=== PATIENT | male | born 1965 | race African-American/Black ===

== ENCOUNTER → 2017-03-01 | Outpatient (CLI) | payer BC ==
--- NOTE | 2017-03-03 13:28 | DRAGON STRESS TEST REPORT ---
Exercise EKG treadmill Cardiolite stress test using SPECT. Data procedure: 03/01/2017. Ordering Provider: Dr. Perkins. Indication: Atherosclerotic heart disease. Coronary risk factors: Age , hypertension, and hyper lipidemia. Significant physical findings prior to stress testing show a blood pressure of 137/75, and a heart rate of 64 beats per minute. Auscultation of the heart shows normal S1 and S2.No S3 or S4 gallops. Systolic murmur in the left sternal border and apex. Lungs are clear to auscultation and percussion. Resting 12-lead EKG: Sinus rhythm. Inferior wall T inversion and also T inversion in leads V5 to V6 rate Procedure: The patient was excised on a standard Garth protocol. . The patient walked a total of 7 minutes and 4 seconds on this protocol and reached a peak heart rate of 155 beats per minute, which is 91 % of maximum predicted heart rate for age. This is at a workload of 10.10 METS. The test was stopped because of 91% of management predicted heart rate for age achievement The patient described no symptoms of chest pain/discomfor, or shortness of breath. Exercise EKG's show: There is no EKG evidence of exercise-induced myocardial ischemia. Arrhythmias seen:None The blood pressure response was .normal . At peak exercise the blood pressure was 177/67 millimeters of Hg. The double product was 26.0 K. Summary of findings and interpretation: 1. No chest pain or chest discomfort symptoms reproduced. 2. No EKG evidence of ischemia in the form of ST segment depression. 3. Normal blood pressure response. 4. No arrhythmias seen. 5. Good exercise tolerance, good aerobic capacity. Diagnostic treadmill stress test negative for ischemia by EKG criteria. Recommendations: Correlate with nuclear Cardiolite images. Nuclear data: At rest the patient was given 15.06 millicuries of technetium 99 sestamibi, and as per protocol rest none gated SPECT images were obtained. The patient was exercised on a treadmill [see exercise physiology]. One minute prior to termination of exercise, 44.5 millicuries of technetium and there sestamibi was injected intravenously. As per protocol stress gated images were obtained. Impression: Review of images show that all segments of the myocardium had normal perfusion at rest, and normal perfusion post exercise. All segments of the myocardium had normal motion, contraction, and thickening by gated study. Jerry I D. ratio was[normal at 1.09. The computer read rest and stress left ventricular ejection fractions were 60 % and 59 %respectively. Conclusions: 1. No clinical symptoms of exercise-induced myocardial ischemia at a peak heart rate of 155 beats per minute, patient having achieved 91 % of maximum predicted heart rate for age, at a workload of 10.10 METS. 2. No EKG evidence of exercise-induced myocardial ischemia. 3. No arrhythmias seen. 4. No scintigraphic evidence of exercise-induced myocardial ischemia. 5. No scintigraphic evidence of myocardial infarction/scar. Recommendations Aggressive coronary risk factor modification, and treatment of underlying comorbidities. MTDD
== END ==
LOC: RAD 07:35
PROVIDERS: ATTEND Internal Medicine
DX: I25.10 Atherosclerotic heart disease of native coronary artery without angina pectoris (principal)
CPT/HCPCS: 93017; 78452; A9500; Q9969

== ENCOUNTER 2020-06-26 17:20 | Emergency (ER) | payer BC, OTHER ==
--- NOTE | 2020-06-26 19:06 | RADIOLOGY REPORT (SQ) ---
EXAM DESCRIPTION: FOOT RIGHT COMPLETE IMAGES COMPLETED DATE/TIME: 06/26/2020 6:50 pm REASON FOR STUDY: foot pain COMPARISON: None. EXAM PARAMETERS: NUMBER OF VIEWS: Three views. TECHNIQUE: AP, lateral and oblique radiographic images acquired of the right foot. LIMITATIONS: None. FINDINGS: MINERALIZATION: Normal. BONES: No acute fracture or dislocation. No worrisome bone lesions. JOINTS: No effusion. SOFT TISSUES: No significant soft tissue swelling. No radiopaque foreign body. OTHER: No other significant finding. IMPRESSION: NO FRACTURE. TECHNICAL DOCUMENTATION: JOB ID: [id number] [place]-[id number] 2010 [employer]- All Rights Reserved Reading location - IP/workstation name: [email or web address]
--- NOTE | 2020-06-26 19:24 | ER Document Report ---
ED Extremity Problem, Lower - General Chief Complaint: Foot Pain Stated Complaint: RIGHT FOOT PAIN/UNABLE TO STAND ON IT Primary Care Provider: CARL ALLISON MD [Primary Care Provider] - Follow up as needed Notes: 54-year-old male presenting today with past medical history of PA, COPD, asthma resenting today with right foot pain when he walks. He states that he has no pain when he is not walking he can bend flex move his foot around and has 0 pain. But once he goes to take a step on it he begins to have pain. He does not state that the pain gets any better with walking. He states that he had COVID 22 days ago. Had a repeat COVID testing today for evaluation for negative test result. He continues to report that he has had a loss of smell and loss of taste. He states that he is also has had calf pain. There is no swelling of his ankle foot or calf. Walks he notices his calf hurts as well. Symptoms started a week ago, have increased in intensity today when he walks. Denies any additional symptoms at this time. TRAVEL OUTSIDE OF THE [place] IN LAST 30 DAYS: No - Related Data Allergies/Adverse Reactions: No Known Allergies Allergy (Verified 06/26/20 18:32) Past Medical History - Social History Smoking Status: Former Smoker Frequency of alcohol use: None Drug Abuse: None Family History: Reviewed & Not Pertinent Patient has homicidal ideation: No - Past Medical History Cardiac Medical History: Reports: Hx Heart Attack, Hx Hypercholesterolemia, Hx Hypertension Pulmonary Medical History: Reports: Hx Asthma Neurological Medical History: Reports: Hx Migraine Past Surgical History: Reports: Hx Cardiac Surgery - stent - Immunizations Hx Diphtheria, Pertussis, Tetanus Vaccination: Yes Review of Systems - Review of Systems Constitutional: No symptoms reported EENT: No symptoms reported Cardiovascular: No symptoms reported Respiratory: No symptoms reported Gastrointestinal: No symptoms reported Genitourinary: No symptoms reported Male Genitourinary: No symptoms reported Musculoskeletal: See HPI Skin: No symptoms reported Hematologic/Lymphatic: No symptoms reported Neurological/Psychological: No symptoms reported Physical Exam - Vital signs Vitals: Temp Pulse Resp BP Pulse Ox 97.6 F 105 H 18 118/79 99 06/26/20 17:27 06/26/20 17:27 06/26/20 17:27 06/26/20 17:27 06/26/20 17:27 Interpretation: Tachycardic. No: Hypertensive, Tachypneic, Febrile - Notes Notes: Adult General: GENERAL: Alert, interacts well. No acute distress HEAD: Normocephalic, atraumatic EYES: Extraocular movements intact. ENT: Airway patent. Nares patent NECK: Full range of motion. Supple. Trachea midline. No lymphadenopathy. LUNGS: Clear to auscultation bilaterally, no wheezes, rales, or rhonchi. No respiratory distress. Nontender chest wall. HEART: Regular rate and rhythm. No murmurs, rubs or gallops. ABDOMEN: Nondistended. GENITOURINARY: Deferred EXTREMITIES: No pain with flexion, extension, inversion, eversion. No swelling of ankle. Foot and ankle is non tender to palpation. No calf swelling but does have calf tenderness. (+) alexa sign. Good capillary refill and good sensation to light touch on bilateral lower extremity. No ecchymosis no bruising. Moves all 4 extremities spontaneously. No edema, dorsal pedis pulses bilaterally. No cyanosis. BACK: Moves all extremities with full range of motion. NEUROLOGICAL: Alert and oriented x3. Normal speech. Strength 5/ 5 in all extremities. PSYCH: Normal affect, normal mood. SKIN: Warm, dry, normal turgor. No rashes or lesions noted. Course - Re-evaluation Re-evalutation: 06/26/20 22:27 Doppler study was ordered at 6:19. Around 8:00 Doppler study had not been performed. I called Doppler and I received no answer. I talked with the charge nurse who is able to have the on-call Doppler tech paged to have them come in to perform the study. Was notified by the tech that the patient does have a positive DVT to popliteal vein and also notes a decreased blood flow starting in the femoral. I am pending the official read. And then I will consult heme-onc. Patient was notified of this plan. Venous doppler shows thrombus of the popliteal vein and posterior tibial veins. I called Dr. Rucker who is on-call for hematology who recommends starting patient on anticoagulation. Is agreeable that patient can be started on Eliquis if creatinine and GFR are within normal limits. I have ordered the labs. Are pending results. Creatinine is 0.85 and GFR is greater than 60 I will go ahead and order the patient Eliquis. Additional labs are unremarkable. I instructed the patient to take 10 mg of Eliquis twice daily for 7 days and then 5 mg twice daily for a minimum of 3 months. I discussed with him that I have prescribed him enough medication for 1 month and that he needs to follow-up with his primary care provider on Sunday. I also discussed return precautions to include shortness of breath, cough, leg swelling or additional symptoms. I also have ordered patient crutches to help him ambulate. Patient acknowledges and verbalizes understanding of instructions and plan. All questions answered. - Vital Signs Vital signs: Temp Pulse Resp BP Pulse Ox 98.0 F 82 16 120/82 100 06/27/20 00:52 06/27/20 00:52 06/27/20 00:52 06/27/20 00:52 06/27/20 00:52 - Laboratory Result Diagrams: 06/26/20 23:30 06/26/20 23:30 Laboratory results interpreted by me: 06/26/20 06/26/20 23:30 23:30 Hgb 13.4 L MCV 79 L MCH 26.7 L Glucose 116 H Discharge - Discharge Clinical Impression: DVT (deep venous thrombosis) Qualifiers: DVT location: lower extremity Affected thrombotic vein of extremity: popliteal Chronicity: acute Laterality: right Qualified Code(s): I82.431 - Acute embolism and thrombosis of right popliteal vein Condition: Stable Disposition: HOME, SELF-CARE Instructions: DVT Outpatient Treatment ([facility]) Additional Instructions: Venous doppler shows you have a DVT on your right lower extremity. You have been given a medication to take for this, eliquis. Please take 10 mg by mouth twice a day for 7 days and then decrease the dose to 5 mg by mouth twice a day for a minimum of 3 months. I have prescribed you enough medication for 1 month. Please follow-up with your primary care on Sunday. Please take medication as prescribed. Please return to the emergency department for worsening symptoms or development of new symptoms to include cough and shortness of breath. Prescriptions: Apixaban [Eliquis 5 mg Tablet] 5 mg PO BID #35 tablet Referrals: CARL ALLISON MD [Primary Care Provider] - Follow up as needed
--- NOTE | 2020-06-26 22:38 | RADIOLOGY REPORT (SQ) ---
EXAM DESCRIPTION: US EXTREMITY VEINS UNILATERAL COMPLETED DATE/TME: 06/26/2020 18:19 CLINICAL HISTORY: 54 years, Male, right calf pain COMPARISON: None. TECHNIQUE: Transverse longitudinal sonographic images of the right lower extremity deep venous system LIMITATIONS: None. FINDINGS: Visible areas of thrombus associated with the popliteal vein, and posterior tibial veins. Lack of normal compression and augmentation in these regions. Doppler and spectral analysis with color flow shows diminished flow in these regions. No other areas of DVT IMPRESSION: Findings positive for right lower extremity DVT, as above copyright 2010 [employer]- All Rights Reserved
[2020-06-26 23:51] LABS: HEMATOCRIT 39.6 % (37.9-51.0); HEMOGLOBIN 13.4 g/dL (13.5-17.0); MEAN CORPUSCULAR HEMOGLOBIN 26.7 pg (27.0-33.4); MEAN CORPUSCULAR VOLUME 79 fl (80-97); PLATELET COUNT 420 10^3/uL (150-450); RED BLOOD COUNT 5.03 10^6/uL (4.35-5.55); RED CELL DISTRIBUTION WIDTH 13.9 % (11.5-14.0)
[2020-06-27 00:03] LABS: INTERNATIONAL RATION (INR) 1.11; PROTHROMBIN TIME 14.5 SEC (11.4-15.4)
[2020-06-27 00:04] LABS: PARTIAL THROMBOPLASTIN TIME 33.1 SEC (23.5-35.8)
[2020-06-27 00:10] LABS: ALBUMIN 3.6 g/dL (3.5-5.0); ALKALINE PHOSPHATASE 51 U/L (38-126); ANION GAP 10 (5-19); ASPARTATE AMINO TRANSFERASE 28 U/L (17-59); BILIRUBIN,DIRECT 0.1 mg/dL (0.0-0.4); BILIRUBIN,TOTAL 0.5 mg/dL (0.2-1.3); BLOOD UREA NITROGEN 13 mg/dL (7-20); CALCIUM 9.1 mg/dL (8.4-10.2); CARBON DIOXIDE 27 mmol/L (22-30); CHLORIDE 103 mmol/L (98-107); GLUCOSE 116 mg/dL (75-110); POTASSIUM 4.3 mmol/L (3.6-5.0); TOTAL PROTEIN 7.4 g/dL (6.3-8.2)
[2020-06-27] MEDS ORDERED: APIXABAN 5 MG TABLET PO ONE (00:25)
[2020-06-27 00:53] VITALS: BP 120/82
== END 2020-06-27 00:57 | disposition home or self-care (01) ==
LOC: ER 17:20
DX: I82.431 Acute embolism and thrombosis of right popliteal vein (principal); M79.671 Pain in right foot; M79.604 Pain in right leg; R43.8 Other disturbances of smell and taste; I25.2 Old myocardial infarction; J44.9 Chronic obstructive pulmonary disease, unspecified; Z87.891 Personal history of nicotine dependence; I10 Essential (primary) hypertension
CPT/HCPCS: 36415; 80053; 85027; 85610; 85730; 93971; 99285